=== PATIENT | female | born 1950 | race Caucasian/White ===

== ENCOUNTER 2023-04-29 18:16 | Emergency (ER) | payer OTHER, MEDICARE, SELFPAY ==
[2023-04-29 18:17] VITALS: RESP 14; TEMP 36.6; BMI 33.5
[2023-04-29 18:26] VITALS: BP 178/79; PULSE 87; RESP 16; O2SAT 97
--- NOTE | 2023-04-29 18:55 | RAD_ITS ---
STUDY: X-RAY - RIGHT RADIUS AND ULNA REASON FOR EXAM: Female, 72 years old. pain TECHNIQUE: 2 view(s) of the forearm. COMPARISON: None. FINDINGS: There is no demonstrated soft tissue swelling. Normal visualized radius. Normal visualized ulna. Degenerative changes of the wrist. RAD/Forearm 2 Views IMPRESSION: No fracture or malalignment. Electronically Signed: Mathieu Martin (Brooks), at 19:14 EDT ,
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
--- NOTE | 2023-04-29 18:55 | RAD_ITS ---
STUDY: X-RAY - CERVICAL SPINE REASON FOR EXAM: Female, 72 years old. pain TECHNIQUE: 3 view(s) of the cervical spine were obtained. COMPARISON: None FINDINGS: Normal anterior atlantoaxial articulation. Normal odontoid process. There is straightening of the normal cervical lordosis. Fixation plate and screws of C3-C4. Degenerative anterolisthesis C4-C5 due to facet arthropathy. There is multi-level degenerative disc disease with multilevel disc space narrowing. The soft tissue structures are unremarkable. RAD/Cerv Spine 2 or 3 Views IMPRESSION: Multilevel degenerative disc disease and facet arthropathy. Previous surgical fusion. Electronically Signed: Mathieu Martin (Brooks), at 19:18 EDT ,
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
[2023-04-29] MEDS: Oxycodone/Apap 5/325 Tablet PO (19:05)
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
--- NOTE | 2023-04-29 20:09 | CT_ITS ---
ACR Level 3 findings have been noted. An addendum which confirms receipt of the report will follow. STUDY: CTA CHEST REASON FOR EXAM: Female, 72 years old. Sternal fracture RADIATION DOSAGE (If Supplied By Facility): CTDIvol = ( 13.55 ) mGy, DLP = ( 540.56 ) mGycm TECHNIQUE: The examination was performed with the intravenous administration of IV-100 ML ISO 370. Post-processing of the angiographic images was performed, with multiplanar reformation and 3D reconstruction. Individualized dose optimization techniques were used for this CT. COMPARISON: None FINDINGS: Normal enhancement of the main pulmonary artery and right and left pulmonary arteries. Normal enhancement of the bilateral peripheral pulmonary arteries. There is no demonstrated pulmonary embolism. Normal thoracic aorta and visualized great vessels. There is no demonstrated aortic dissection. Normal heart and pericardium. Normal mediastinum. Normal hilar regions. Normal visualized trachea and bronchi. Bilateral lung base subsegmental atelectasis. Normal pulmonary parenchyma. Normal pleura. 6.8 x 6.6 x 5.5 mm right lower lobe subpleural nodule. 5.9 x 4.7 x 5.6 mm left lower lobe subpleural nodule. 6.6 x 5.2 x 4.9 cm anterior left upper lobe nodule. Normal chest wall structures. Nondisplaced fracture of the upper sternum. No associated hematoma. Normal visualized upper abdomen. CT/CTA Chest W/WO Contrast IMPRESSION: Nondisplaced upper sternal fracture without retrosternal hematoma. Bilateral lung nodules measure up to 6.3 mm. If patient is at elevated risk for lung cancer, low-dose chest CT in 12 months per Fleischner Society criteria. No demonstrated pulmonary embolism or arterial dissection. Electronically Signed: Moses Navarro MD at 22:38 EDT ,
[2023-04-29 20:36] LABS: Absolute Lymphocyte Count 1.28 X10^3/uL (0.83-4.51); Absolute Neutrophil Count 4.7 X10^3/uL (2.0-7.7); Basophil# 0.05 X10^3/uL; Basophil% 0.7 % (0-1); Eosinophil# 0.13 X10^3/uL; Eosinophils% 1.9 % (0-5); Hematocrit 40.6 % (37-47); Lymphocyte # 1.28 X10^3/ul (0.83-4.51); Mean Corpuscular Hgb 28.3 pg (27.0-32.0); Mean Corpuscular Volume 88.5 fL (81-99); Mean Platelet Vol. 10.2 fl (6.2-12.0); Monocyte% 7.4 % (0-10); NRBC Flagged by Analyzer 0 % (0-5); Neutrophil # 4.74 X10^3/uL (2.7-7.7); Neutrophil % 70.4 % (47-70); Platelet Count 181 K/mm3 (150-450); RBC Distribution Width CV 14.5 % (11.6-14.6); RBC Distribution Width SD 46.3 fl (35.1-43.9); Red Blood Count 4.59 M/mm3 (4.2-5.4); White Blood Count 6.7 K/mm3 (4.4-11.0)
[2023-04-29 21:14] LABS: Anion Gap 3 (5-15); BUN 15 mg/dL (7-18); Chloride 110 mmol/L (98-107); Creatinine, Serum 0.72 mg/dL (0.55-1.02); EST Glomerular Filtration Rate 85 mL/min (>60); Est Glom Filt Rate - Afr Amer 103 mL/min (>60); Estimated Creatinine Clearance 51.58 ml/min; Glucose 106 mg/dL (74-106); Potassium 4.1 mmol/L (3.5-5.1); Sodium Level 141 mmol/L (136-145); Troponin-I HS 4 pg/mL (3.0-54.0)
[2023-04-29] MEDS: Morphine 4 MG/ML Syringe IV (22:08)
[2023-04-29 22:15] VITALS: BP 141/74; PULSE 66; RESP 16; O2SAT 95
[2023-04-29 23:33] VITALS: BP 156/78; PULSE 63; RESP 16; O2SAT 95
== END 2023-04-30 00:03 | disposition home or self-care (01) ==
PROVIDERS: Physician Assistant; Emergency Provider Emergency Medicine; PCP Family Medicine; Visit Provider Emergency Medicine
DX: S22.20XA Unspecified fracture of sternum, initial encounter for closed fracture (principal); S50.811A Abrasion of right forearm, initial encounter; V43.52XA Car driver injured in collision with other type car in traffic accident, initial encounter
CPT/HCPCS: 71120; 71275; 72040; 73090; 80048; 84484; 85025; 93005; 96374; 99284; Q9967; A4216